=== PATIENT | male | born 1980 | race Hispanic/Latino ===

== ENCOUNTER 2020-11-10 12:21 | Emergency (ER) | payer BC, SELFPAY ==
--- OUTSIDE RECORDS SUMMARY | 2020-11-10 12:24 | XMS REPORT | Continuity of Care Document ---
:1980 Author Organization [facility] t Address [address] [place] [address] Care Team Providers Name Role Phone Sam Noriega DO Attending Clinician Ara Kim PA-C Attending Clinician Ayanna ISAAC Attending Clinician Problems This patient has no known problems. Allergies, Adverse Reactions, Alerts This patient has no known allergies or adverse reactions. Medications This patient has no known medications. Procedures This patient has no known procedures. Encounters Start End Encounter Admission Attending Care Care Encounter Source Date/Time Date/Time Type Type Clinicians Facility Department ID 2020-10-04 2020-10-04 Patient Hari [facility] [id number] 00:00:00 00:00:00 Outreach [facility] [id number] Sam CARE [id number] [facility] [phone] [id number] 2019-10-09 2019-10-09 Telephone Tamar Kim [facility] [id number] 00:00:00 00:00:00 [facility] [id number] CARE [id number] CENTER AT [phone] [address] 2019-10-06 2019-10-06 Urgent Tamar Kim [facility] [id number] 13:40:07 15:13:04 Care [facility] [id number] Sara [id number] Professio [phone] [address] 2019-10-06 2019-10-06 Telephone Ayanna [facility] [id number] 00:00:00 00:00:00 [place] [id number] [place] [id number] Professio [phone] [address] Results This patient has no known results.
[2020-11-10] MEDS ORDERED: NA CHLORIDE 0.9% 1,000 ML ONE (14:39)
[2020-11-10] MEDS ORDERED: ONDANSETRON 4 MG/2 ML VIAL ONE (14:39)
[2020-11-10] MEDS ORDERED: MORPHINE 4 MG/ML SYR ONE (14:39)
[2020-11-10 14:40] LABS: Absolute Lymphocytes (CBC) 0.7 K/uL (0.7-4.9); Basophils % 0.2 % (0-1.3); Hematocrit 44.5 % (39.6-49.0); Lymphocytes % 4.9 % (15.3-44.8); RBC Red Blood Cell Count 5.27 M/uL (4.33-5.43)
--- NOTE | 2020-11-10 14:43 | RAD REPORT ---
EXAM DESCRIPTION: CTAbdomen Pelvis W Contrast - 11/10/2020 2:32 pm CLINICAL HISTORY: Abdominal pain. left sided abdominal pain COMPARISON: Abdomen Pelvis W Contrast dated 02/10/2017 TECHNIQUE: Biphasic CT imaging of the abdomen and pelvis was performed with 100 ml non-ionic IV cont rast. All CT scans are performed using dose optimization technique as appropriate and may include automated exposure control or mA/KV adjustment according to patient size. FINDINGS: The lung bases are clear.Small hiatal hernia. The liver, spleen, pancreas, adrenal glands and kidneys are within normal limits. No bowel obstruction, free air, free fluid or abscess. There is quite significant inflammation of 12- 13 cm length of sigmoid colon. The appendix is normal. No evidence of significant lymphadenopathy. No suspicious bony findings. IMPRESSION: Significant inflammation involving 12-13 cm length of sigmoid colon. This favors diverti culitis or colitis. Suggest colonoscopy assessment after appropriate therapy to exclude underlying ma ss.
[2020-11-10 14:54] LABS: Albumin 3.9 g/dL (3.4-5.0); Bilirubin Direct 0.2 mg/dL (0-0.2); Bilirubin Total 0.9 mg/dL (0.2-1.0); Potassium 4.1 mmol/L (3.5-5.1); Protein, Total 7.5 g/dL (6.4-8.2)
[2020-11-10] MEDS ORDERED: metroNIDAZOLE 500 MG TABLET ONE (15:12)
[2020-11-10] MEDS ORDERED: levoFLOXacin 750 MG TAB ONE (15:14)
[2020-11-10 15:19] LABS: Blood Morphology Comment NOT SEEN (NOT SEEN); Platelet Estimate ADEQ; White Blood Cell Scan OK (OK)
--- NOTE | 2020-11-10 16:44 | ER ---
Nurse's Notes [facility] Name: Jakob Da Silva Age: 40 yrs Sex: Male : 1980 Arrival Date: 11/10/2020 Time: 12:24 Bed 14 Private MD: Diagnosis: Sigmoid Colitis Presentation: 11/10 12:47 Chief complaint: Patient states: left lower quad. pain that started this morning, em reports having N/V/D since this morning, denies fever, has had a colon infection in the past. Coronavirus screen: Client denies travel out of the [place] in the last 14 days. Ebola Screen: Patient negative for fever greater than or equal to 101.5 degrees Fahrenheit, and additional compatible Ebola Virus Disease symptoms Patient denies exposure to infectious person. Patient denies travel to an Ebola-affected area in the 21 days before illness onset. No symptoms or risks identified at this time. Initial Sepsis Screen: Does the patient meet any 2 criteria? No. Patient's initial sepsis screen is negative. Does the patient have a suspected source of infection? No. Patient's initial sepsis screen is negative. Risk Assessment: Do you want to hurt yourself or someone else? Patient reports no desire to harm self or others. Onset of symptoms was November 10, 2020. 12:47 Method Of Arrival: Ambulatory em 12:47 Acuity: GERARDO 3 em Historical: - Allergies: 12:50 No Known Allergies; em - Home Meds: 12:50 None [Active]; em - PMHx: 12:50 "colon infection"; em - PSHx: 12:50 None; em - Immunization history:: Adult Immunizations up to date. - Social history:: Smoking status: Patient denies any tobacco usage or history of. Screenin:47 Abuse screen: Denies threats or abuse. Nutritional screening: No deficits noted. tw2 Tuberculosis screening: No symptoms or risk factors identified. Fall Risk None identified. Assessment: 13:47 General: Appears in no apparent distress. uncomfortable, well groomed, Behavior is tw2 calm, cooperative, appropriate for age. Pain: Complains of pain in left lower quadrant. Neuro: Level of Consciousness is awake, alert, obeys commands, Oriented to person, place, time, situation. Cardiovascular: Patient's skin is warm and dry. Respiratory: Airway is patent Respiratory effort is even, unlabored, Respiratory pattern is regular, symmetrical. GI: Abdomen is flat, Reports lower abdominal pain, nausea, vomiting. : No signs and/or symptoms were reported regarding the genitourinary system. Musculoskeletal: Range of motion: intact in all extremities. 14:01 Reassessment: provider at bedside at this time. tw2 14:13 Reassessment: No changes from previously documented assessment. tw2 16:07 Reassessment: Patient appears in no apparent distress at this time. No changes from tw2 previously documented assessment. Patient and/or family updated on plan of care and expected duration. Pain level reassessed. Patient is alert, oriented x 3, equal unlabored respirations, skin warm/dry/pink. Vital Signs: 12:47 BP 123 / 82; Pulse 89; Resp 18; Temp 99.0(O); Pulse Ox 100% on R/A; Weight 88.45 kg; em Height 5 ft. 2 in. (157.48 cm); Pain 10/10; 14:14 BP 111 / 83; Pulse 86; Resp 17; Pulse Ox 99% on R/A; tw2 16:07 BP 143 / 82; Pulse 70; Resp 17; Pulse Ox 98% on R/A; tw2 12:47 Body Mass Index 35.67 (88.45 kg, 157.48 cm) em ED Course: 12:24 Patient arrived in ED. mr 12:49 Triage completed. em 12:50 Arm band placed on. em 13:40 Torie Gupta, RN is Primary Nurse. tw2 13:40 Bed in low position. Call light in reach. Adult w/ patient. Pulse ox on. NIBP on. Warm tw2 blanket given. 13:44 Jose Chambers PA is PHCP. m 13:44 Leonardo Merlos MD is Attending Physician. jmm 14:13 Inserted saline lock: 20 gauge in right antecubital area, using aseptic technique. tw2 Blood collected. 14:32 CT Abd/Pelvis - IV Contrast Only In Process Unspecified. EDMS 16:43 Glenn Holguin MD is Referral Physician. [facility] 16:57 No provider procedures requiring assistance completed. IV discontinued, intact, tw2 bleeding controlled, No redness/swelling at site. Pressure dressing applied. Administered Medications: 14:40 Drug: Zofran (Ondansetron) 4 mg Route: IVP; Site: right antecubital; tw2 14:58 Follow up: Response: No adverse reaction tw2 14:40 Drug: NS 0.9% 1000 ml Route: IV; Rate: 1 bolus; Site: right antecubital; tw2 16:56 Follow up: Response: No adverse reaction; IV Status: Completed infusion; IV Intake: tw2 1000ml 14:42 Drug: morphine 4 mg {Note: RASS 0.} Route: IVP; Site: right antecubital; tw2 14:58 Follow up: Response: No adverse reaction; Pain is decreased; RASS: Alert and Calm (0) tw2 14:57 Drug: Flagyl (metroNIDAZOLE) 500 mg Route: PO; tw2 16:57 Follow up: Response: No adverse reaction tw2 14:58 Drug: LevaQUIN (levofloxacin) 750 mg Route: PO; tw2 16:56 Follow up: Response: No adverse reaction tw2 Intake: 16:56 IV: 1000ml; Total: 1000ml. tw2 Outcome: 16:43 Discharge ordered by MD. rangel 16:57 Discharged to home ambulatory, with significant other. tw2 16:57 Condition: stable 16:57 Discharge instructions given to patient, significant other, Instructed on discharge instructions, follow up and referral plans. no drinking with medication, no driving heavy equipment, medication usage, Demonstrated understanding of instructions, follow-up care, medications, Prescriptions given X 4. 16:58 Patient left the ED. tw2 Signatures: Dispatcher [employer] Jose Beyer PA PA jmm Rivera, Mary mr Munoz, Edgar RN Torie Kent RN RN tw2
--- NOTE | 2020-11-10 16:45 | EDPHYS ---
Physician Documentation [facility] Name: Jakob Da Silva Age: 40 yrs Sex: Male : 1980 Arrival Date: 11/10/2020 Time: 12:24 Bed 14 Private MD: ED Physician Leonardo Merlos HPI: 11/10 14:02 This 40 yrs old Male presents to ER via Ambulatory with complaints of [facility] Abdominal Pain. 14:02 The patient presents with abdominal pain. Onset: The symptoms/episode began/occurred jm gradually, today. The symptoms do not radiate. Associated signs and symptoms: Pertinent positives: diarrhea, Pertinent negatives: fever. The symptoms are described as achy, sharp. Modifying factors: The symptoms are alleviated by nothing, the symptoms are aggravated by. 14:02 The patient has not experienced similar symptoms in the past. [facility] Historical: - Allergies: 12:50 No Known Allergies; em - Home Meds: 12:50 None [Active]; em - PMHx: 12:50 "colon infection"; em - PSHx: 12:50 None; em - Immunization history:: Adult Immunizations up to date. - Social history:: Smoking status: Patient denies any tobacco usage or history of. ROS: 14:02 Constitutional: Negative for fever, chills, and weight loss, Cardiovascular: Negative jm for chest pain, palpitations, and edema, Respiratory: Negative for shortness of breath, cough, wheezing, and pleuritic chest pain. 14:02 Abdomen/GI: Positive for abdominal pain, nausea, diarrhea. 14:02 All other systems are negative. Exam: 14:02 Constitutional: This is a well developed, well nourished patient who is awake, alert, jmm and in no acute distress. Head/Face: atraumatic. Eyes: EOMI, no conjunctival erythema appreciated ENT: Moist Mucus Membranes Neck: Trachea midline, Supple Chest/axilla: Normal chest wall appearance and motion. Cardiovascular: Regular rate and rhythm. No edema appreciated Respiratory: Normal respirations, no respiratory distress appreciated 14:02 Back: Normal ROM Skin: General appearance color normal MS/ Extremity: Moves all extremities, no obvious deformities appreciated, no edema noted to the lower extremities Neuro: Awake and alert, normal gait Psych: Behavior is normal, Mood is normal, Patient is cooperative and pleasant 14:02 Abdomen/GI: Inspection: abdomen appears normal, Bowel sounds: normal, Palpation: soft, mild abdominal tenderness, in the left upper quadrant and left lower quadrant. Vital Signs: 12:47 BP 123 / 82; Pulse 89; Resp 18; Temp 99.0(O); Pulse Ox 100% on R/A; Weight 88.45 kg; em Height 5 ft. 2 in. (157.48 cm); Pain 10/10; 14:14 BP 111 / 83; Pulse 86; Resp 17; Pulse Ox 99% on R/A; tw2 16:07 BP 143 / 82; Pulse 70; Resp 17; Pulse Ox 98% on R/A; tw2 12:47 Body Mass Index 35.67 (88.45 kg, 157.48 cm) em MDM: 14:02 Patient medically screened. [facility] 16:35 Data reviewed: vital signs, nurses notes. Counseling: I had a detailed discussion with claire the patient and/or guardian regarding: the historical points, exam findings, and any diagnostic results supporting the discharge/admit diagnosis, lab results, radiology results, the need for outpatient follow up, to return to the emergency department if symptoms worsen or persist or if there are any questions or concerns that arise at home. ED course: Patient is alert and non toxic in appearance in the ED. No signs of resp distress. patient is advised to follow up with pcp and otherwise given strict return precautions. patient understood and agrees with the plan of care. . 11/10 14:03 Order name: Basic Metabolic Panel; Complete Time: 14:55 [facility] 11/10 14:03 Order name: CBC with Diff; Complete Time: 15: [facility] 11/10 14:03 Order name: Hepatic Function; Complete Time: 14:55 [facility] 11/10 14:03 Order name: Lipase; Complete Time: 14:55 [facility] 11/10 14:50 Order name: CREATININE WHOLE BLOOD; Complete Time: 14:55 [facility] 11/10 15:19 Order name: CBC Smear Scan; Complete Time: 15:27 [facility] 11/10 14:03 Order name: IV Saline Lock; Complete Time: 14:13 [facility] 11/10 14:03 Order name: Labs collected and sent; Complete Time: 14:13 [facility] 11/10 14:03 Order name: CT Abd/Pelvis - IV Contrast Only; Complete Time: 14:47 [facility] Administered Medications: 14:40 Drug: Zofran (Ondansetron) 4 mg Route: IVP; Site: right antecubital; tw2 14:58 Follow up: Response: No adverse reaction tw2 14:40 Drug: NS 0.9% 1000 ml Route: IV; Rate: 1 bolus; Site: right antecubital; tw2 16:56 Follow up: Response: No adverse reaction; IV Status: Completed infusion; IV Intake: tw2 1000ml 14:42 Drug: morphine 4 mg {Note: RASS 0.} Route: IVP; Site: right antecubital; tw2 14:58 Follow up: Response: No adverse reaction; Pain is decreased; RASS: Alert and Calm (0) tw2 14:57 Drug: Flagyl (metroNIDAZOLE) 500 mg Route: PO; tw2 16:57 Follow up: Response: No adverse reaction tw2 14:58 Drug: LevaQUIN (levofloxacin) 750 mg Route: PO; tw2 16:56 Follow up: Response: No adverse reaction tw2 Disposition: 11/11 06:19 Co-signature as Attending Physician, Leonardo Merlos MD I agree with the assessment and kdr plan of care. Disposition: 11/10/20 16:43 Discharged to Home. Impression: Sigmoid Colitis. - Condition is Stable. - Discharge Instructions: Colitis. - Prescriptions for Tylenol- Codeine #3 300-30 mg Oral tablet - take 1 tablet by ORAL route every 4 hours as needed; 20 tablet. Zofran ODT 4 mg Oral tablet,disintegrating - place 1 tablet by TRANSLINGUAL route every 4-6 hours; 20 tablet. Flagyl 500 mg Oral Tablet - take 1 tablet by ORAL route every 8 hours for 10 days; 30 tablet. Levaquin 750 mg Oral Tablet - take 1 tablet by ORAL route once daily for 10 days; 10 tablet. - Medication Reconciliation Form, Thank You Letter, Antibiotic Education, Prescription Opioid Use, Work release form form. - Follow up: Glenn Holguin MD; When: 2 - 3 days; Reason: Recheck today's complaints, Continuance of care, Re-evaluation by your physician. Signatures: Dispatcher [employer] Leonardo Giles MD MD kdr Mickail, Joel, PA PA Juan Molina RN RN em Gupta, Torie, RN RN tw2 Corrections: (The following items were deleted from the chart) 11/10 16:58 16:43 11/10/2020 16:43 Discharged to Home. Impression: Sigmoid Colitis. Condition is tw2 Stable. Forms are Medication Reconciliation Form, Thank You Letter, Antibiotic Education, Prescription Opioid Use. Follow up: Glenn Holguin; When: 2 - 3 days; Reason: Recheck today's complaints, Continuance of care, Re-evaluation by your physician. claire
[2020-11-10 17:02] VITALS: TEMP 99
[2020-11-10 17:05] VITALS: BP 143/82; O2SAT 98
== END 2020-11-10 16:58 | disposition home or self-care (01) ==
LOC: ER 12:21
DX: K52.9 Noninfective gastroenteritis and colitis, unspecified (principal)
CPT/HCPCS: 36415; 74177; 80048; 80076; 82565; 83690; 85025; 96361; 96374; 96375; 99284; J2405; J7030; Q9967

== ENCOUNTER 2020-11-12 10:07 | Inpatient (IN) | payer SELFPAY ==
--- OUTSIDE RECORDS SUMMARY | 2020-11-12 10:10 | XMS REPORT | Continuity of Care Document ---
:1980 Author Organization [facility] t Address [address] [place] [address] Care Team Providers Name Role Phone Sam [...] Facility Department ID 2020-10-04 2020-10-04 Patient [facility] [id number] 00:00:00 00:00:00 Outreach [facility] [id number] Sam CARE [id number] [facility] [id number] [id number] 2019-10-09 2019-10-09 Telephone Tamar Kim [facility] [id number] 00:00:00 00:00:00 [facility] [id number] [facility] [id number] CENTER AT [phone] [address] 2019-10-06 2019-10-06 Urgent Tamar Kim [facility] [id number] 13:40:07 15:13:04 Care [facility] [id number] [place] [id number] [facility] [phone] [address] 2019-10-06 2019-10-06 Telephone Ayanna [facility] [id number] 00:00:00 00:00:00 [place] [id number] [place] [id number] Professio [phone] [address] Results This patient has no known results.
[2020-11-12 10:55] LABS: Absolute Lymphocytes (CBC) 1.2 K/uL (0.7-4.9); Basophils % 0.4 % (0-1.3); Hematocrit 43.8 % (39.6-49.0); Lymphocytes % 24.7 % (15.3-44.8); MPV 8.7 fL (7.6-11.3); RBC Red Blood Cell Count 5.16 M/uL (4.33-5.43)
[2020-11-12 11:05] LABS: Potassium 4.1 mmol/L (3.5-5.1)
--- NOTE | 2020-11-12 11:33 | RAD REPORT ---
EXAM DESCRIPTION: CTAbdomen Pelvis W Contrast - 11/12/2020 10:58 am CLINICAL HISTORY: Abdominal pain. ABD PAIN COMPARISON: Abdomen Pelvis W Contrast dated 11/10/2020; Abdomen Pelvis W Contrast dated 02/10/2017 TECHNIQUE: Biphasic CT imaging of the abdomen and pelvis was performed with 100 ml non-ionic IV cont rast. All CT scans are performed using dose optimization technique as appropriate and may include automated exposure control or mA/KV adjustment according to patient size. FINDINGS: The lung bases are clear.Small hiatal hernia. The liver, spleen, pancreas, adrenal glands and kidneys are within normal limits. No bowel obstruction, free air, free fluid or abscess. There is a 12 cm length of sigmoid colon in th e left lower quadrant which shows significant inflammation and surrounding fluid compatible with dive rticulitis or colitis. No abscess is seen, however the inflammation is mildly progressive since the r ecent comparative study. The appendix is normal. No evidence of significant lymphadenopathy. No suspicious bony findings. IMPRESSION: Mild progression in the degree of inflammation involving a fairly long length of the sig moid colon, with colitis or diverticulitis remaining the most likely etiology. There certainly has be en no improvement seen since the comparative study from 2 days prior. No abscess is present nor is th ere evidence of perforation/pneumoperitoneum.
[2020-11-12] MEDS ORDERED: MORPHINE 4 MG/ML SYR ONE (11:40)
[2020-11-12] MEDS ORDERED: METRONIDAZOLE 500mg IVPB 500 MG/100 ML BAG IV ONE (11:41)
[2020-11-12] MEDS ORDERED: CIPROFLOXACIN 400mg IV 400 MG/200 ML BAG IV ONE (11:41)
[2020-11-12] MEDS ORDERED: ONDANSETRON 4 MG/2 ML VIAL ONE (11:41)
[2020-11-12] MEDS ORDERED: NA CHLORIDE 0.9% 1,000 ML ONE (11:41)
--- NOTE | 2020-11-12 12:39 | ER ---
Nurse's Notes [facility] Name: Jakob Da Silva Age: 40 yrs Sex: Male : 1980 Arrival Date: 11/12/2020 Time: 10:10 Bed 13 Private MD: Diagnosis: Diverticulitis of intestine, part unspecified, without perforation or abscess without bleeding-failed outpatient treatment Presentation: 11/12 10:27 Chief complaint: Chief complaint: Seen in ED for colitis 2 days ago, on Cipro and hb Flagyl, c/o LLQ pain 03/25. 10:27 Coronavirus screen: At this time, the client does not indicate any symptoms associated hb with coronavirus-19. Ebola Screen: No symptoms or risks identified at this time. Initial Sepsis Screen: Does the patient meet any 2 criteria? No. Patient's initial sepsis screen is negative. Does the patient have a suspected source of infection? No. Patient's initial sepsis screen is negative. Risk Assessment: Do you want to hurt yourself or someone else? Patient reports no desire to harm self or others. Onset of symptoms was November 07, 2020. 10:27 Method Of Arrival: Ambulatory hb 10:27 Acuity: GERARDO 3 hb Historical: - Allergies: 10:29 No Known Allergies; hb - PMHx: 10:29 "colon infection"; hb - PSHx: 10:29 None; hb - Immunization history:: Adult Immunizations up to date. - Social history:: Smoking status: Patient denies any tobacco usage or history of. Screenin:35 Abuse screen: Denies threats or abuse. Denies injuries from another. Nutritional ca1 screening: No deficits noted. Tuberculosis screening: No symptoms or risk factors identified. Fall Risk IV access (20 points). Assessment: 10:35 General: Appears in no apparent distress. comfortable, Behavior is calm, cooperative, ca1 appropriate for age. Pain: Complains of pain in left lower quadrant Pain currently is 9 out of 10 on a pain scale. Pain began 2-3 days ago. Is intermittent. Neuro: Level of Consciousness is awake, alert, obeys commands, Oriented to person, place, time, situation. Cardiovascular: Heart tones S1 S2 present Capillary refill < 3 seconds Patient's skin is warm and dry. Respiratory: Airway is patent Respiratory effort is even, unlabored, Respiratory pattern is regular, symmetrical, Breath sounds are clear bilaterally. GI: Abdomen is flat, non-distended, Bowel sounds present X 4 quads. Abd is soft X 4 quads Abdomen is tender to palpation in left lower quadrant Reports diarrhea, nausea, vomiting. : No signs and/or symptoms were reported regarding the genitourinary system. EENT: No signs and/or symptoms were reported regarding the EENT system. Derm: Skin is intact, is healthy with good turgor, Skin is pink, warm \\T\\ dry. Musculoskeletal: Circulation, motion, and sensation intact. Capillary refill < 3 seconds. 11:37 Reassessment: Patient appears in no apparent distress at this time. Patient and/or ca1 family updated on plan of care and expected duration. Pain level reassessed. Patient is alert, oriented x 3, equal unlabored respirations, skin warm/dry/pink. 12:34 Reassessment: Patient appears in no apparent distress at this time. Patient and/or ca1 family updated on plan of care and expected duration. Pain level reassessed. Patient is alert, oriented x 3, equal unlabored respirations, skin warm/dry/pink. 13:19 Reassessment: Patient appears in no apparent distress at this time. Patient and/or ca1 family updated on plan of care and expected duration. Pain level reassessed. Patient is alert, oriented x 3, equal unlabored respirations, skin warm/dry/pink. 14:20 Reassessment: Patient appears in no apparent distress at this time. Patient and/or ca1 family updated on plan of care and expected duration. Pain level reassessed. Patient is alert, oriented x 3, equal unlabored respirations, skin warm/dry/pink. 15:29 Reassessment: Patient appears in no apparent distress at this time. Patient and/or ca1 family updated on plan of care and expected duration. Pain level reassessed. Patient is alert, oriented x 3, equal unlabored respirations, skin warm/dry/pink. 15:39 Reassessment: called for report, nurse will call back. ca1 16:00 Reassessment: Patient appears in no apparent distress at this time. Patient and/or ca1 family updated on plan of care and expected duration. Pain level reassessed. Patient is alert, oriented x 3, equal unlabored respirations, skin warm/dry/pink. Vital Signs: 10:27 BP 137 / 88; Pulse 73; Resp 16; Temp 97.7; Pulse Ox 100% on R/A; Pain 9/10; hb 11:37 BP 102 / 65; Pulse 67; Resp 18 S; Pulse Ox 97% on R/A; ca1 12:34 BP 116 / 77; Pulse 74; Resp 18 S; Pulse Ox 99% on R/A; ca1 13:19 BP 110 / 68; Pulse 70; Resp 18 S; Pulse Ox 97% on R/A; ca1 14:20 BP 117 / 73; Pulse 55; Resp 17 S; Pulse Ox 100% on R/A; ca1 15:29 BP 101 / 72; Pulse 73; Resp 18 S; Pulse Ox 97% on R/A; ca1 ED Course: 10:10 Patient arrived in ED. am2 10:29 Triage completed. hb 10:29 Arm band placed on. hb 10:30 Jodee Melchor FNP-C is PHCP. kb 10:30 Lazaro Arias MD is Attending Physician. kb 10:31 Emmy Garcia RN is Primary Nurse. ca1 10:35 Patient has correct armband on for positive identification. Bed in low position. Call ca1 light in reach. Side rails up X 1. Pulse ox on. NIBP on. Warm blanket given. 10:43 Initial lab(s) drawn, by me, sent to lab. Inserted saline lock: 20 gauge in right ca1 forearm, using aseptic technique. Blood collected. 10:43 No provider procedures requiring assistance completed. ca1 10:58 CT Abd/Pelvis - IV Contrast Only In Process Unspecified. EDMS 12:38 Nate Doll MD is Hospitalizing Provider. kb 15:34 Patient admitted, IV remains in place. ca1 Administered Medications: 11:10 Drug: NS 0.9% 1000 ml Route: IV; Rate: 1000 ml; Site: right forearm; ca1 13:00 Follow up: Response: No adverse reaction; IV Status: Completed infusion ca1 11:11 Drug: Zofran (Ondansetron) 4 mg Route: IVP; Site: right forearm; ca1 12:09 Follow up: Response: No adverse reaction; Nausea is decreased ca1 11:13 Drug: morphine 4 mg {Note: rass 0.} Route: IVP; Site: right forearm; ca1 12:09 Follow up: Response: No adverse reaction; Pain is decreased; RASS: Alert and Calm (0) ca1 11:36 Drug: Flagyl (metroNIDAZOLE) 500 mg Volume: 100 ml; Route: IVPB; Rate: 200 ml/hr; ca1 Infused Over: 30 mins; Site: right forearm; 12:09 Follow up: Response: No adverse reaction; IV Status: Completed infusion ca1 12:09 Drug: Cipro (ciprofloxacin) 400 mg Volume: 200 ml; Route: IVPB; Infused Over: 60 mins; ca1 Site: right forearm; 13:10 Follow up: Response: No adverse reaction; IV Status: Completed infusion; IV Intake: ca1 1000ml Intake: 13:10 IV: 1000ml; Total: 1000ml. ca1 Outcome: 12:38 Decision to Hospitalize by Provider. kb 16:00 Admitted to Med/surg accompanied by tech, via wheelchair, room 217, with chart, Report ca1 called to [facility] [place] 16:00 Condition: stable 16:00 Instructed on the need for admit. 16:33 Patient left the ED. ca1 Signatures: Dispatcher [employer] EDJodee Nagy, DEVIN NEWSPAPER STUFFER-Namita Castellanos RN RN Caroline Ferreira am2 Emmy Garcia RN RN ca1 Corrections: (The following items were deleted from the chart) 10:29 10:27 Chief complaint: hb hb
--- NOTE | 2020-11-12 12:39 | EDPHYS ---
Physician Documentation [facility] Name: Jakob Da Silva Age: 40 yrs Sex: Male : 1980 Arrival Date: 11/12/2020 Time: 10:10 Bed 13 Private MD: ED Physician Lazaro Arias HPI: 11/12 14:26 This 40 yrs old Male presents to ER via Ambulatory with complaints of kb Abdominal Pain. 14:26 The patient presents with abdominal pain in the left lower quadrant. Onset: The kb symptoms/episode began/occurred 3 day(s) ago. The symptoms do not radiate. Associated signs and symptoms: Pertinent positives: diarrhea. The symptoms are described as constant. Modifying factors: The symptoms are alleviated by nothing, the symptoms are aggravated by movement, pressure, walking. Severity of pain: At its worst the pain was moderate in the emergency department the pain is unchanged. The patient has experienced similar episodes in the past, a few times. The patient has been recently seen by a physician:. Pt reports he started having severe abd pain on Sunday, came here and was diagnosed with colitis. Has been on cipro and flagyl, but pain has been getting worse. . Historical: - Allergies: 10:29 No Known Allergies; hb - PMHx: 10:29 "colon infection"; hb - PSHx: 10:29 None; hb - Immunization history:: Adult Immunizations up to date. - Social history:: Smoking status: Patient denies any tobacco usage or history of. ROS: 14:26 Constitutional: Negative for fever, chills, and weight loss, Cardiovascular: Negative kb for chest pain, palpitations, and edema, Respiratory: Negative for shortness of breath, cough, wheezing, and pleuritic chest pain, MS/Extremity: Negative for injury and deformity, Skin: Negative for injury, rash, and discoloration, Neuro: Negative for headache, weakness, numbness, tingling, and seizure. 14:26 Abdomen/GI: Positive for abdominal pain, diarrhea. Exam: 14:26 Constitutional: This is a well developed, well nourished patient who is awake, alert, kb and in no acute distress. Head/Face: Normocephalic, atraumatic. Cardiovascular: Regular rate and rhythm with a normal S1 and S2. No gallops, murmurs, or rubs. No pulse deficits. Respiratory: Respirations even and unlabored. No increased work of breathing, no retractions or nasal flaring. Skin: Warm, dry with normal turgor. Normal color. MS/ Extremity: Pulses equal, no cyanosis. Neurovascular intact. Full, normal range of motion. Neuro: Awake and alert, GCS 15, oriented to person, place, time, and situation. Moves all extremities. Normal gait. 14:26 Abdomen/GI: Inspection: abdomen appears normal, Bowel sounds: normal, in all quadrants, Palpation: soft, in all quadrants, moderate abdominal tenderness, in the left lower quadrant. Vital Signs: 10:27 BP 137 / 88; Pulse 73; Resp 16; Temp 97.7; Pulse Ox 100% on R/A; Pain 9/10; hb 11:37 BP 102 / 65; Pulse 67; Resp 18 S; Pulse Ox 97% on R/A; ca1 12:34 BP 116 / 77; Pulse 74; Resp 18 S; Pulse Ox 99% on R/A; ca1 13:19 BP 110 / 68; Pulse 70; Resp 18 S; Pulse Ox 97% on R/A; ca1 14:20 BP 117 / 73; Pulse 55; Resp 17 S; Pulse Ox 100% on R/A; ca1 15:29 BP 101 / 72; Pulse 73; Resp 18 S; Pulse Ox 97% on R/A; ca1 MDM: 10:30 Patient medically screened. kb 12:35 Data reviewed: vital signs, nurses notes. Data interpreted: Pulse oximetry: on room air kb is 99 %. Interpretation: normal. Counseling: I had a detailed discussion with the patient and/or guardian regarding: the historical points, exam findings, and any diagnostic results supporting the discharge/admit diagnosis, lab results, radiology results, the need for further work-up and treatment in the hospital. 11/12 10:31 Order name: Basic Metabolic Panel kb 11/12 10:31 Order name: CBC with Diff kb 11/12 10:32 Order name: Basic Metabolic Panel; Complete Time: 11:30 EDMT 11/12 10:32 Order name: CBC with Automated Diff; Complete Time: 11:02 EDMT 11/12 13:10 Order name: COVID-19 : Document "Date of Symptom Onset" if Symptomatic. kb 11/12 14:09 Order name: CORONAVIRUS EDMT 11/12 10:38 Order name: CT Abd/Pelvis - IV Contrast Only; Complete Time: 11:41 kb 11/12 12:52 Order name: NPO [facility] 11/12 14:50 Order name: SARS-COV-2 RT PCR; Complete Time: 15:06 [facility] 11/12 10:31 Order name: IV Saline Lock; Complete Time: 10:49 kb 11/12 10:31 Order name: Labs collected and sent; Complete Time: 10:49 kb Administered Medications: 11:10 Drug: NS 0.9% 1000 ml Route: IV; Rate: 1000 ml; Site: right forearm; ca1 13:00 Follow up: Response: No adverse reaction; IV Status: Completed infusion ca1 11:11 Drug: Zofran (Ondansetron) 4 mg Route: IVP; Site: right forearm; ca1 12:09 Follow up: Response: No adverse reaction; Nausea is decreased ca1 11:13 Drug: morphine 4 mg {Note: rass 0.} Route: IVP; Site: right forearm; ca1 12:09 Follow up: Response: No adverse reaction; Pain is decreased; RASS: Alert and Calm (0) ca1 11:36 Drug: Flagyl (metroNIDAZOLE) 500 mg Volume: 100 ml; Route: IVPB; Rate: 200 ml/hr; ca1 Infused Over: 30 mins; Site: right forearm; 12:09 Follow up: Response: No adverse reaction; IV Status: Completed infusion ca1 12:09 Drug: Cipro (ciprofloxacin) 400 mg Volume: 200 ml; Route: IVPB; Infused Over: 60 mins; ca1 Site: right forearm; 13:10 Follow up: Response: No adverse reaction; IV Status: Completed infusion; IV Intake: ca1 1000ml Disposition: 11/13 08:03 Co-signature as Attending Physician, Lazaro ISAAC I agree with the assessment and kenneth plan of care. Disposition: 11/12/20 12:38 Hospitalization ordered by Nate Doll for Inpatient Admission. Preliminary diagnosis is Diverticulitis of intestine, part unspecified, without perforation or abscess without bleeding - failed outpatient treatment. - Bed requested for Telemetry/MedSurg (Inpatient). - Status is Inpatient Admission. ca1 - Condition is Stable. - Problem is new. - Symptoms are unchanged. Signatures: Dispatcher [employer] [facility] Jodee Melchor FNP-C FNP-Ckb Lazaro Arias MD MD cha Baxter, Heather, RN RN Quynh Deluna eb Emmy Garcia, RN RN ca1 Corrections: (The following items were deleted from the chart) 11/12 15:31 12:38 Hospitalization Ordered by Nate Doll MD for Inpatient Admission. Preliminary eb diagnosis is Diverticulitis of intestine, part unspecified, without perforation or abscess without bleeding - failed outpatient treatment. Bed requested for Telemetry/MedSurg (Inpatient). Status is Inpatient Admission. Condition is Stable. Problem is new. Symptoms are unchanged. kb 16:33 15:31 11/12/2020 12:38 Hospitalization Ordered by Nate Doll MD for Inpatient ca1 Admission. Preliminary diagnosis is Diverticulitis of intestine, part unspecified, without perforation or abscess without bleeding - failed outpatient treatment. Bed requested for Telemetry/MedSurg (Inpatient). Status is Inpatient Admission. Condition is Stable. Problem is new. Symptoms are unchanged. eb
[2020-11-12] MEDS ORDERED: ONDANSETRON 4 MG/2 ML VIAL IV PRN ×2 (12:48→20:23)
--- NOTE | 2020-11-12 12:55 | P.HP ---
Certification for Inpatient Patient admitted to: Inpatient With expected LOS: >2 Midnights Patient will require the following post-hospital care: None Practitioner: I am a practitioner with admitting privileges, knowledge of patient current condition, hospital course, and medical plan of care. Services: Services provided to patient in accordance with Admission requirements found in Title 42 Section 412.3 of the Code of Federal Regulations Patient History Date of Service: 11/12/20 Reason for admission: Colitis/diverticulitis. History of Present Illness: 40 y o male pt with no significant medical hx who came to the ED for evaluation of abd pain. He had been seen 2 days prior with same c/o and he had CT abd/pelvis done that showed diverticulitis/colitis without perforation. he had ciprofloxacin and flagyl prescribed without significant relief. he did have nausea/vomiting episodes. pain is rated 9/10 at its worst. he had a repeat CT abd/pelvis that showed worsening inflammation but no perforation or abscess formation. he was started on IV antibiotics and given antiemetic meds and was admitted for inpt care. Allergies No Known Rudy Allergy (Mild, Uncoded 08/31/17 00:27) Unknown Home medications list reviewed: Yes - Past Medical/Surgical History Has patient received pneumonia vaccine in the past: No Diabetic: No Past Medical History: Patient denies medical history Past Surgical History: Patient denies surgical history Review of Systems General: Malaise Eyes: Unremarkable ENT: Unremarkable Respiratory: Unremarkable Cardiovascular: Unremarkable Gastrointestinal: Nausea, Vomiting, Abdominal Pain Genitourinary: Unremarkable Musculoskeletal: Unremarkable Integumentary: Unremarkable Neurological: Unremarkable Physical Examination - Physical Exam General: Alert, Oriented x3, Cooperative, Mild distress HEENT: Atraumatic, Normocephalic Neck: Supple Respiratory: Clear to auscultation bilaterally Cardiovascular: Regular rate/rhythm, Normal S1 S2 Gastrointestinal: Tenderness (in lower abd.) Musculoskeletal: No swelling Integumentary: No rashes Neurological: Normal speech, Normal strength at 5/5 x4 extr, Cranial nerves 3-12 intact - Studies Laboratory Data (last 24 hrs) 11/12/20 10:46: WBC 5.10 D, Hgb 14.7, Hct 43.8, Plt Count 214 11/12/20 10:46: Sodium 141, Potassium 4.1, BUN 16, Creatinine 1.17, Glucose 87 Assessment and Plan - Plan 1. Colitis/diverticulitis: He does have clinical and radiologic evidence of colitis. Empiric antibiotic of flagyl and ciprofloxacin have been started. we will keep NPO for now. we will continue antiemetic meds. we will start IV NS fluid for hydration. To have GI evaluation post hospital discharge. 2. Nausea/vomiting: we will continue zofran. 3. Abd Pain: Due to colitis episode. we will continue IV morphine for pain control. Discharge Plan: Home - Advance Directives Does patient have a Living Will: No Does patient have a Durable POA for Healthcare: No
[2020-11-12] MEDS: NA CHLORIDE 0.9% 1,000 ML IV SCH ×3 (13:00→23:00)
[2020-11-12] MEDS: METRONIDAZOLE 500mg IVPB 500 MG/100 ML BAG IV SCH (16:58)
[2020-11-12] MEDS: MORPHINE 2 MG/ML SYR IV PRN (18:05)
[2020-11-12 18:39] VITALS: BMI 35.6
[2020-11-12] MEDS: CIPROFLOXACIN 400mg IV 400 MG/200 ML BAG IV SCH (20:12)
[2020-11-12] MEDS ORDERED: PROMETHAZINE INJ 25 MG/ML AMP IV ONE (20:19)
[2020-11-12] MEDS ORDERED: MORPHINE 2 MG/ML SYR IV ONE (20:21)
[2020-11-13] MEDS: METRONIDAZOLE 500mg IVPB 500 MG/100 ML BAG IV SCH ×3 (00:21→16:52)
[2020-11-13] MEDS: MORPHINE 2 MG/ML SYR IV PRN ×2 (03:29→21:12)
[2020-11-13] MEDS: NA CHLORIDE 0.9% 1,000 ML IV SCH ×3 (05:30→16:52)
[2020-11-13 05:49] LABS: Absolute Lymphocytes (CBC) 1.5 K/uL (0.7-4.9); Basophils % 0.6 % (0-1.3); Hematocrit 41.3 % (39.6-49.0); MPV 9.1 fL (7.6-11.3); RBC Red Blood Cell Count 4.77 M/uL (4.33-5.43)
[2020-11-13 06:00] LABS: Albumin 3.1 g/dL (3.4-5.0); Bilirubin Total 0.7 mg/dL (0.2-1.0); Magnesium 2.2 mg/dL (1.8-2.4); Potassium 4.7 mmol/L (3.5-5.1); Protein, Total 6.3 g/dL (6.4-8.2)
[2020-11-13] MEDS: CIPROFLOXACIN 400mg IV 400 MG/200 ML BAG IV SCH ×2 (09:27→21:12)
[2020-11-13] MEDS: ENOXAPARIN 40 MG/0.4 ML SQ SCH (09:27)
--- NOTE | 2020-11-13 10:46 | P.PN ---
Subjective Date of Service: 11/13/20 Chief Complaint: Colitis/diverticulitis. Subjective: Improving (slight improvement in symptoms - mild nausea, pain down to 6-7/10, +flatus, no BM) Review of Systems 10-point ROS is otherwise unremarkable Physical Examination - Vital Signs Temperature: 98.3 F Blood Pressure: 101/63 Pulse: 55 Respirations: 18 Pulse Ox (%): 98 - Studies Laboratory Data (last 24 hrs) 11/12/20 10:46: WBC 5.10 D, Hgb 14.7, Hct 43.8, Plt Count 214 11/12/20 10:46: Sodium 141, Potassium 4.1, BUN 16, Creatinine 1.17, Glucose 87 Assessment & Plan Physician Review Additional Text: Physical Exam General: Alert, Oriented x3, NAD HEENT: normal conjunctiva, sclera anicteric Respiratory: Clear to auscultation bilaterally Cardiovascular: Regular rate/rhythm, Normal S1 S2 Abd: soft, moderate TTP in LLQ, no rebound Ext: no erythema, no rash, no edema Neuro/Psych: moving all extremities, normal speech, normal affect Problem List: Acute sigmoid diverticulitis/colitis continue empiric antibiotic coverage - cipro & flagyl continue NPO, IVF; consider advancement of diet when pain is minimal and no nausea zofran for nausea morphine for pain control no evidence of bleeding at this time VTE: lovenox Code: Full Dispo: anticipate dc home, likely ~48hrs Time Spent Managing Pts Care (In Minutes): 35
[2020-11-13 21:21] VITALS: O2SAT 98
[2020-11-14] MEDS: METRONIDAZOLE 500mg IVPB 500 MG/100 ML BAG IV SCH ×3 (00:08→16:16)
[2020-11-14] MEDS: NA CHLORIDE 0.9% 1,000 ML IV SCH ×2 (05:00→09:23)
[2020-11-14 06:37] LABS: Absolute Lymphocytes (CBC) 1.3 K/uL (0.7-4.9); Basophils % 0.5 % (0-1.3); Hematocrit 42.8 % (39.6-49.0); Lymphocytes % 29.6 % (15.3-44.8); RBC Red Blood Cell Count 4.98 M/uL (4.33-5.43)
[2020-11-14 07:19] LABS: Albumin 3.2 g/dL (3.4-5.0); Bilirubin Total 0.9 mg/dL (0.2-1.0); Magnesium 2.1 mg/dL (1.8-2.4); Potassium 4.4 mmol/L (3.5-5.1); Protein, Total 6.4 g/dL (6.4-8.2)
[2020-11-14] MEDS: ENOXAPARIN 40 MG/0.4 ML SQ SCH (09:23)
[2020-11-14] MEDS: CIPROFLOXACIN 400mg IV 400 MG/200 ML BAG IV SCH ×2 (09:23→20:51)
--- NOTE | 2020-11-14 13:06 | P.PN ---
Subjective Date of Service: 11/14/20 Chief Complaint: Colitis/diverticulitis. Subjective: Improving (no nausea, pain is 2/10. feeling better. feels hungry. no other complaints. +flatus) Review of Systems 10-point ROS is otherwise unremarkable Physical Examination - Vital Signs Temperature: 99.3 F Blood Pressure: 117/73 Pulse: 58 Respirations: 18 Pulse Ox (%): 98 Assessment & Plan Physician Review Additional Text: Physical Exam General: Alert, Oriented x3, NAD HEENT: normal conjunctiva, sclera anicteric Respiratory: Clear to auscultation bilaterally Cardiovascular: Regular rate/rhythm, Normal S1 S2 Abd: soft, mild TTP in LLQ, no rebound Ext: no erythema, no rash, no edema Neuro/Psych: moving all extremities, normal speech, normal affect Problem List: Acute sigmoid diverticulitis/colitis continue empiric antibiotic coverage - cipro & flagyl advance diet to CLD, can go up to full liquids today if tolerating zofran for nausea morphine for pain control no evidence of bleeding at this time will need GI follow up for c-scope VTE: lovenox Code: Full Dispo: anticipate dc home, likely tomorrow Time Spent Managing Pts Care (In Minutes): 35
[2020-11-14] MEDS: MORPHINE 2 MG/ML SYR IV PRN (20:51)
[2020-11-15] MEDS: METRONIDAZOLE 500mg IVPB 500 MG/100 ML BAG IV SCH ×2 (00:37→08:21)
[2020-11-15 04:02] VITALS: TEMP 97.3
[2020-11-15 06:28] LABS: Albumin 3.3 g/dL (3.4-5.0); Bilirubin Total 1.4 mg/dL (0.2-1.0); Potassium 3.7 mmol/L (3.5-5.1); Protein, Total 6.5 g/dL (6.4-8.2)
[2020-11-15] MEDS: CIPROFLOXACIN 400mg IV 400 MG/200 ML BAG IV SCH (08:21)
[2020-11-15] MEDS: ENOXAPARIN 40 MG/0.4 ML SQ SCH (08:21)
[2020-11-15 08:52] VITALS: BP 106/67
[2020-11-15] MEDS ORDERED: POTASSIUM CL SA 10 MEQ TAB PO ONE (09:00)
--- NOTE | 2020-11-15 09:36 | P.DS ---
Admission Date: 11/12/20 Discharge Date: 11/15/20 Disposition: ROUTINE DISCHARGE Discharge Condition: GOOD Reason for Admission: Colitis/diverticulitis. Procedures: CT Abd/Pelvis (11/12): Findings: The lung bases are clear.Small hiatal hernia. The liver, spleen, pancreas, adrenal glands and kidneys are within normal limits. No bowel obstruction, free air, free fluid or abscess. There is a 12 cm length of sigmoid colon in the left lower quadrant which shows significant inflammation and surrounding fluid compatible with diverticulitis or colitis. No abscess is seen, however the inflammation is mildly progressive since the recent comparative study. The appendix is normal. No evidence of significant lymphadenopathy. Impression: Mild progression in the degree of inflammation involving a fairly long length of the sigmoid colon, with colitis or diverticulitis remaining the most likely etiology. There certainly has been no improvement seen since the comparative study from 2 days prior. No abscess is present nor is there evidence of perforation/pneumoperitoneum. Problem List: Acute sigmoid diverticulitis/colitis Brief History of Present Illness: 40 y o male pt with no significant medical hx who came to the ED for evaluation of abd pain. He had been seen 2 days prior with same c/o and he had CT abd/pelvis done that showed diverticulitis/colitis without perforation. he had ciprofloxacin and flagyl prescribed without significant relief. he did have nausea/vomiting episodes. pain is rated 9/10 at its worst. he had a repeat CT abd/pelvis that showed worsening inflammation but no perforation or abscess formation. He was started on IV antibiotics and given antiemetic meds and was admitted for inpt care. Hospital Course: He was treated with bowel rest and empiric coverage with IV cipro and flagyl. He had improvement of his symptoms. He was able to tolerate a GI soft diet on day of discharge without any nausea/vomiting or worsening abdominal pain. He remained afebrile and without a leukocytosis. Blood cultures remained negative. He was discharged home to complete a total of 2 weeks of cipro & flagyl. He was recommended to follow up with PCP in 3-5 days, and to get a colonoscopy in the near future. Vital Signs/Physical Exam: Physical Exam General: Alert, Oriented x3, NAD HEENT: normal conjunctiva, sclera anicteric Respiratory: Clear to auscultation bilaterally Cardiovascular: Regular rate/rhythm, Normal S1 S2 Abd: soft, minimal tenderness in LLQ, no rebound Ext: no erythema, no rash, no edema Neuro/Psych: moving all extremities, normal speech, normal affect Temp Pulse Resp BP Pulse Ox 97.3 F 60 15 106/67 98 11/15/20 08:00 11/15/20 08:00 11/15/20 08:00 11/15/20 08:00 11/15/20 08:00 Laboratory Data at Discharge: WBC 4.50 K/uL (4.3-10.9) D 11/14/20 05:33 Hgb 14.1 g/dL (13.6-17.9) 11/14/20 05:33 Hct 42.8 % (39.6-49.0) 11/14/20 05:33 Plt Count 225 K/uL (152-406) 11/14/20 05:33 Sodium 140 mmol/L (136-145) 11/15/20 05:12 Potassium 3.7 mmol/L (3.5-5.1) 11/15/20 05:12 BUN 10 mg/dL (7-18) 11/15/20 05:12 Creatinine 1.13 mg/dL (0.55-1.3) 11/15/20 05:12 Glucose 102 mg/dL (74-106) 11/15/20 05:12 Magnesium 2.1 mg/dL (1.8-2.4) 11/14/20 05:33 Total Bilirubin 1.4 mg/dL (0.2-1.0) H 11/15/20 05:12 AST 16 U/L (15-37) 11/15/20 05:12 ALT 22 U/L (12-78) 11/15/20 05:12 Alkaline Phosphatase 73 U/L (45-117) 11/15/20 05:12 Home Medications: Ciprofloxacin HCl 500 mg PO BID 12 Days #24 tablet 11/15/20 metroNIDAZOLE [Flagyl] 500 mg PO Q8H 12 Days #36 tablet 11/15/20 New Medications: Ciprofloxacin HCl 500 mg PO BID 12 Days #24 tablet metroNIDAZOLE [Flagyl] 500 mg PO Q8H 12 Days #36 tablet Diet: Person (soft) Activity: Ad qamar Followup: NONE,NONE [Primary Care Provider] - Time spent managing pt's care (in minutes): 35
== END 2020-11-15 10:43 | disposition home or self-care (01) | DRG 392 ==
LOC: ER 10:07 → ERHOLD 12:50 → 2ND 16:01
PROVIDERS: ADMIT Hospitalist; ATTEND Hospitalist
DX: K52.9 Noninfective gastroenteritis and colitis, unspecified (principal); K57.32 Diverticulitis of large intestine without perforation or abscess without bleeding; Z79.899 Other long term (current) drug therapy; Z20.822 Contact with and (suspected) exposure to COVID-19
CPT/HCPCS: 36415; 74177; 80048; 80053; 82565; 83735; 85025; 96365; 96367; 96375; 99285; J0744; J1650; J2270; J2405; J2550; J7030; Q9967; U0003